=== PATIENT | male | born 1960 ===

== ENCOUNTER 2019-11-25 15:51 | Outpatient (REF) | payer OTHER, SELFPAY ==
[2019-12-01 18:58] LABS: SARS-CoV-2 RNA Undetected (Undetected); SARS-CoV-2 Specimen Source Nasopharynx
== END 2019-11-25 16:11 ==
LOC: NCHCN 15:51
PROVIDERS: Visit Provider Nurse Practitioner Family
DX: Z20.828 Contact with and (suspected) exposure to other viral communicable diseases (principal)
CPT/HCPCS: U0003

== ENCOUNTER 2021-02-14 17:20 | Outpatient (REF) | payer OTHER, SELFPAY ==
[2021-02-14 20:56] LABS: ESR 4 mm/hr (0-20); HCT 47.3 % (40.0-50.0); HGB 15.7 g/dL (13.5-17.5); MCH 32.4 pg (27.0-33.0); MCHC 33.2 % (32.0-36.0); MCV 97.5 fL (80-95); MPV 10.8 fL (8.0-11.0); Platelet Count 191 10^3/uL (130-400); RBC 4.85 10^6/uL (4.36-5.78); RDW 13.4 % (11.8-14.1); RDW-SD 48.9 fL; WBC 6.71 10^3/uL (4.4-10.8)
[2021-02-14 21:53] LABS: ALT 48 U/L (16-63); AST 26 U/L (15-37); Alkaline Phosphatase 68 U/L (46-116); Anion Gap 8.4 mmol/L (3-11); BUN 20 mg/dL (7-18); Bilirubin, Total 0.5 mg/dL (0.2-1.0); CO2 29.6 mmol/L (21.0-32.0); Calcium 8.9 mg/dL (8.5-10.1); Chloride 104 mmol/L (98-107); Glucose 88 mg/dL (74-106); LDL CHOLESTEROL 79 mg/dL (<100); Potassium 4.1 mmol/L (3.5-5.1); Sodium 142 mmol/L (136-145); Total Protein 7.1 g/dL (6.4-8.2)
== END 2021-02-14 17:21 | disposition home or self-care (01) ==
LOC: NCHCN 17:20
PROVIDERS: Visit Provider Internal Medicine
DX: I10 Essential (primary) hypertension (principal); Z00.00 Encounter for general adult medical examination without abnormal findings
CPT/HCPCS: 80053; 83721; 85027; 85652

== ENCOUNTER 2022-09-09 17:53 | Outpatient (REF) | payer OTHER, SELFPAY ==
[2022-09-09 20:27] LABS: HCT 43.1 % (40.0-50.0); HGB 14.9 g/dL (13.5-17.5); MCH 32.2 pg (27.0-33.0); MCHC 34.6 % (32.0-36.0); MCV 93 fL (80-95); MPV 10.2 fL (8.0-11.0); Platelet Count 172 10^3/uL (130-400); RBC 4.63 10^6/uL (4.36-5.78); RDW 14.3 % (11.8-14.1); RDW-SD 48.6 fL; WBC 6.92 10^3/uL (4.4-10.8)
[2022-09-09 21:04] LABS: ALT 48 U/L (16-63); AST 34 U/L (15-37); Albumin 3.6 g/dL (3.4-5.0); Alkaline Phosphatase 58 U/L (46-116); Anion Gap 5.8 mmol/L (3-11); BUN 24 mg/dL (7-18); Bilirubin, Total 0.4 mg/dL (0.2-1.0); CO2 31.2 mmol/L (21.0-32.0); CREATININE 1.1 mg/dL (0.70-1.30); Calcium 8.6 mg/dL (8.5-10.1); Calculated LDL 70 mg/dL (<100); Chloride 102 mmol/L (98-107); Cholesterol 151 mg/dL (<200); Estimated GFR 76.37 (mL/min/1.73m2); Glucose 109 mg/dL (74-106); HDL Cholesterol 53 mg/dL (40-60); Potassium 4.1 mmol/L (3.5-5.1); Sodium 139 mmol/L (136-145); TSH 4.08 uIU/mL (0.36-3.74); Total Protein 7.2 g/dL (6.4-8.2); Triglyceride 144 mg/dL (<150); Vitamin B12 585 pg/mL (193-986)
[2022-09-09 21:19] LABS: Creatine Kinase 436 U/L (39-308)
== END 2022-09-09 17:54 | disposition home or self-care (01) ==
LOC: NCHCN 17:53
PROVIDERS: Visit Provider Internal Medicine
DX: M06.9 Rheumatoid arthritis, unspecified (principal); E78.5 Hyperlipidemia, unspecified; K52.9 Noninfective gastroenteritis and colitis, unspecified; G62.9 Polyneuropathy, unspecified; Z79.899 Other long term (current) drug therapy
CPT/HCPCS: 80053; 80061; 82550; 85027; 82607; 84443

== ENCOUNTER 2023-06-09 18:13 | Outpatient (REF) | payer OTHER, SELFPAY ==
[2023-06-09 21:12] LABS: ALT 52 U/L (16-63); Anion Gap 5.3 mmol/L (3-11); BUN 18 mg/dL (7-18); CO2 29.7 mmol/L (21.0-32.0); Calculated LDL 64 mg/dL (<100); Chloride 104 mmol/L (98-107); Cholesterol 140 mg/dL (<200); Glucose 98 mg/dL (74-106); HDL Cholesterol 59 mg/dL (40-60); Potassium 4.4 mmol/L (3.5-5.1); Sodium 139 mmol/L (136-145); Triglyceride 87 mg/dL (<150)
[2023-06-09 21:30] LABS: Creatine Kinase 621 U/L (39-308)
== END 2023-06-09 18:14 | disposition home or self-care (01) ==
LOC: NCHCN 18:13
PROVIDERS: Visit Provider Internal Medicine
DX: E78.5 Hyperlipidemia, unspecified (principal); I10 Essential (primary) hypertension; I73.9 Peripheral vascular disease, unspecified; G62.9 Polyneuropathy, unspecified; M06.9 Rheumatoid arthritis, unspecified
CPT/HCPCS: 80048; 80061; 82550; 84460

== ENCOUNTER 2025-02-11 18:52 | Outpatient (REF) | payer OTHER, SELFPAY ==
[2025-02-11 19:41] LABS: ALT 48 U/L (16-63); AST 34 U/L (15-37); Albumin 4.0 g/dL (3.4-5.0); Alkaline Phosphatase 69 U/L (46-116); Anion Gap 6.7 mmol/L (3-11); BUN 18 mg/dL (7-18); Bilirubin, Total 0.6 mg/dL (0.2-1.0); CO2 30.3 mmol/L (21.0-32.0); Calcium 9.1 mg/dL (8.5-10.1); Calculated LDL 79 mg/dL (<100); Chloride 102 mmol/L (98-107); Cholesterol 148 mg/dL (<200); Estimated GFR 74.96 (mL/min/1.73m2); Glucose 116 mg/dL (74-106); HDL Cholesterol 51 mg/dL (>or=40); Potassium 4.8 mmol/L (3.5-5.1); Sodium 139 mmol/L (136-145); Total Protein 7.8 g/dL (6.4-8.2); Triglyceride 91 mg/dL (<150)
[2025-02-14 10:41] LABS: PSA, Screening 0.3 ng/mL (<=4.5)
== END 2025-02-11 18:53 | disposition home or self-care (01) ==
LOC: NCHCN 18:52
PROVIDERS: Visit Provider Physician Assistant
DX: I10 Essential (primary) hypertension (principal); E78.5 Hyperlipidemia, unspecified; Z12.5 Encounter for screening for malignant neoplasm of prostate
CPT/HCPCS: 80053; 80061; 84153